=== PATIENT | female | born 1955 | race Caucasian/White ===

== ENCOUNTER 2025-10-03 18:24 | Emergency (ER) | payer MEDICARE, BC ==
[~2025-10-03] VITALS: Ht 167.6 cm; Wt 61.2 kg
[2025-10-03 18:35] VITALS: BP 159/95
[2025-10-03] MEDS ORDERED: APIX5TAB PO (18:40)
[2025-10-03] MEDS ORDERED: NEOMY/BACITRA/POLYMYXIN B OINT UD PACKET TP ONE (18:57)
[2025-10-03] MEDS ORDERED: AMOXICILLIN-CLAVUL 875-125MG TABLET ONE (18:57)
[2025-10-03] MEDS ORDERED: AMOX-319 PO (18:58)
[2025-10-03] MEDS: NEOMY/BACITRA/POLYMYXIN B OINT UD PACKET TP ONE (18:58)
[2025-10-03] MEDS: AMOXICILLIN-CLAVUL 875-125MG TABLET PO ONE (18:58)
[2025-10-03 19:15] VITALS: BP 148/94; TEMP 97.9; O2SAT 97
[2025-10-05] MEDS ORDERED: AMOX-319 PO (11:00)
== END 2025-10-03 19:15 | disposition home or self-care (01) ==
LOC: ER 18:33
DX: S80.211A Abrasion, right knee, initial encounter (principal); L08.9 Local infection of the skin and subcutaneous tissue, unspecified; D45 Polycythemia vera; Z79.01 Long term (current) use of anticoagulants; Z86.73 Personal history of transient ischemic attack (TIA), and cerebral infarction without residual deficits; W19.XXXA Unspecified fall, initial encounter; Y93.89 Activity, other specified; Y92.89 Other specified places as the place of occurrence of the external cause; Y99.9 Unspecified external cause status
CPT/HCPCS: A4606; A4663